=== PATIENT | female | born 1965 | race Caucasian/White ===

== ENCOUNTER 2025-03-13 06:23 | Emergency (ER) | payer OTHER ==
[~2025-03-13] VITALS: Ht 165.1 cm; Wt 84.6 kg
[2025-03-13 06:46] LABS: URINE HCG NEGATIVE (NEG)
[2025-03-13 06:52] LABS: BILIRUBIN,URINE NEGATIVE (Neg); CLARITY,URINE SLIGHTLY CLOUDY (Clear); COLOR,URINE YELLOW (Yellow); GLUCOSE, URINE NEGATIVE (Neg); KETONES,URINE NEGATIVE (Neg); LEUKOCYTE ESTERASE ,URINE NEGATIVE (Neg); NITRITES, URINE NEGATIVE (Neg); OCCULT BLOOD,URINE NEGATIVE (Neg); PROTEIN,URINE NEGATIVE (Neg); UROBILINOGEN,URINE 0.2 E.U/dL (0.2-1.0)
[2025-03-13 06:57] LABS: SQUAMOUS EPITHELIAL CELL,UR MANY /LPF (FEW); UA COLLECTION TYPE CLN CATCH MIDSTREAM
[2025-03-13 06:58] LABS: BACTERIA,URINE 3+ /HPF (Neg); WBC,URINE 0-4 /HPF (0-4)
[2025-03-13 06:59] LABS: RBC,URINE 0-2 /HPF (0-2)
[2025-03-13 07:35] LABS: BASOPHILS % (AUTO) 0.7 % (0-1); EOSINOPHILS # (AUTO) 0.1 X10'3 (0-0.9); EOSINOPHILS % (AUTO) 1.5 % (0-6); HEMATOCRIT 40.4 % (35.0-45.0); HEMOGLOBIN 13.6 g/dl (12.0-16.0); LYMPHOCYTES # (AUTO) 1.2 X10'3 (1.1-4.8); LYMPHOCYTES % (AUTO) 21.8 % (21-51); MEAN CORPUSCULAR HGB CONC 33.7 g/dL (33.0-36.5); MEAN CORPUSCULAR VOLUME 97.8 FL (78-98); MEAN PLATELET VOLUME 7.5 FL (7.4-10.4); MONOCYTES # (AUTO) 0.4 X10'3 (0-0.9); MONOCYTES % (AUTO) 6.4 % (2-12); NEUTROPHILS % (AUTO) 69.6 % (42-75); PLATELET COUNT 230 X10'3 (140-440); RED BLOOD COUNT 4.13 X10'6 (4.20-5.60); RED CELL DISTRIBUTION WIDTH 13.1 % (11.5-14.5); WHITE BLOOD COUNT 5.7 X10'3 (4.5-11.0)
[2025-03-13 07:55] LABS: ALANINE AMINOTRANSFERASE 30 U/L (12-78); ALBUMIN 3.8 G/DL (3.4-5.0); ALBUMIN/GLOBULIN RATIO 1.2 (1.1-1.5); ALKALINE PHOSPHATASE 68 IU/L (46-116); ANION GAP 8 (8-16); ASPARTATE AMINO TRANSFERASE 23 U/L (10-37); BILIRUBIN,TOTAL 0.9 MG/DL (0.1-1.0); BLOOD UREA NITROGEN 10 MG/DL (7-18); BUN/CREATININE RATIO 9.2 (10.0-20.0); CALCIUM 8.8 MG/DL (8.5-10.1); CHLORIDE 107 MMOL/L (99-107); CREATININE 1.09 MG/DL (0.40-0.90); GLUCOSE 126 MG/DL (70-104); LIPASE 50 U/L (16-77); POTASSIUM 4.2 MMOL/L (3.5-5.1); SODIUM 141 MMOL/L (135-145); TOTAL PROTEIN 7.1 G/DL (6.4-8.2); eCRCL 49 ML/MIN; eGFR 51 ML/MIN
[2025-03-13] MEDS ORDERED: AMOX-101 PO (08:46)
--- NOTE | 2025-03-13 08:47 | Physician Documentation ---
History of Present Illness Chief Complaint: Abdominal Pain Stated Complaint: ABDOMINAL PAIN Time Seen by MD: 06:37 Mode of Arrival: Ambulatory, Dropped Off HPI 59 year old female with LLQ abdominal pain this morning. She is about to go on a trip to [place] with her significant other. She denies fever, reports some mild diarrhea without blood, and denies vomiting, chest pain, shortness of breath. She thinks it may be a urinary tract infection or a flareup of diverticulitis which she has been diagnosed with in the past. Medication Reconciliation Allergies: Coded Allergies: No Known Allergies (Unverified , 03/13/25) Review of Systems All Other Systems at this time: Reviewed and Negative Physical Exam Vital Signs: RN Vital Signs have been reviewed: Yes, Temperature: 98.1, Source: Oral, Heart Rate: 71, Respiratory Rate: 15, BP: 126/70, Pulse Oximetry: 98, Weight: 84.600 Oxygen Flow Rate: 0 Physical Exam HEENT: PERRL, moist oral mucosa, EOMI Pulmonary: No respiratory distress Cardiac: RRR, no murmur, rub or gallop GI: nondistended, soft, mildly tender LLQ, no guarding, no rebound MSK: no deformity Skin: w/d/i, no rash Neuro: alert, nonfocal Psych: normal affect Progress Results/Orders Results/Orders Completed Orders - LAYTON RUSSELL MD Hcg, Ur Ql (03/13/25 06:32) Cbc/Diff (03/13/25 06:32) BMP (03/13/25 06:32) Lipase (03/13/25 06:32) CMP (03/13/25 06:32) Ua W/Microscopic, Cult If Ind (03/13/25 06:32) Vital Signs 03/13/25 03/13/25 03/13/25 06:28 06:58 08:20 Temp 98.1 98.1 Pulse 72 71 Resp 16 15 B/P (MAP) 124/79 126/70 (88) Pulse Ox 99 98 O2 Flow Rate 0 0 Laboratory Tests Test 03/13/25 06:32 03/13/25 07:19 Urine Specimen Description Cln catch midstream Urine Color Yellow Urine Clarity Slightly cloudy Urine pH 6.0 Urine Specific Ralph 1.015 Urine Protein Negative Urine Glucose (UA) Negative Urine Ketones Negative Urine Occult Blood Negative Urine Nitrite Negative Urine Bilirubin Negative Urine Urobilinogen 0.2 Urine Leukocyte Esterase Negative Urine RBC 0-2 Urine WBC 0-4 Urine Squamous Epithelial Cells Many Urine Bacteria 3+ Urine Culture Indicated Not ind Volume Urine Centrifuged 10 ml Urine HCG, Qualitative Negative Urine Comment White Blood Count 5.7 Red Blood Count 4.13 L Hemoglobin 13.6 Hematocrit 40.4 Mean Corpuscular Volume 97.8 Mean Corpuscular Hemoglobin 33.0 H Mean Corpuscular Hemoglobin Concent 33.7 Red Cell Distribution Width 13.1 Platelet Count 230 Mean Platelet Volume 7.5 Neutrophils (%) (Auto) 69.6 Lymphocytes (%) (Auto) 21.8 Monocytes (%) (Auto) 6.4 Eosinophils (%) (Auto) 1.5 Basophils (%) (Auto) 0.7 Neutrophils # (Auto) 4.0 Lymphocytes # (Auto) 1.2 Monocytes # (Auto) 0.4 Eosinophils # (Auto) 0.1 Basophils # (Auto) 0.0 CBC Comment Sodium Level 141 Potassium Level 4.2 Chloride Level 107 Carbon Dioxide Level 26.0 Anion Gap 8 Blood Urea Nitrogen 10 Creatinine 1.09 H Estimated GFR/1.73 m2 51 BUN/Creatinine Ratio 9.2 L Glucose Level 126 H Calcium Level 8.8 Total Bilirubin 0.9 Aspartate Amino Transf (AST/SGOT) 23 Alanine Aminotransferase (ALT/SGPT) 30 Alkaline Phosphatase 68 Total Protein 7.1 Albumin 3.8 Globulin 3.3 Albumin/Globulin Ratio 1.2 Lipase 50 Chemistry Comments Medical Decision Making Findings 59 year old female with LLQ pain. Exam and vitals nonspecific. Labs did not suggest specific etiology. Given her history of diverticulitis I will treat empirically, though patient refuses flagyl 2/2 poor reaction to this antibiotic in the past and requests amoxicillin. Return precautions discussed. Differential Dx:Considerations: Include: Appendicitis, Bowel obstruction, Cholangitis, Cholelithasis, Constipation, Diverticular disease, Pancreatitis, Urinary obstruction, Urinary tract infection Departure Disposition: HOME / SELF CARE / HOMELESS Impression: Primary Impression: Abdominal pain Condition: Stable Discharge Instructions: Abdominal Pain (Nonspecific) Referrals: NO PRIMARY CARE PROVIDER (PCP) Prescriptions Amoxicillin Trihydrate (Amoxicillin) 500 Mg Capsule 1 CAP PO BID for 7 Days, #14 CAP Prov: LAYTON RUSSELL MD 03/13/25 Education Educated: Patient, Family Educated regarding: diagnosis, treatment, prognosis, need for follow up Signature Scribe Signature: . Attestation: . LAYTON RUSSELL MD Mar 13, 2025 08:47
[2025-03-13] MEDS: amoxicillin 250mg capsule PO ONE (09:03)
[2025-03-13 09:10] VITALS: BP 139/71; PULSE 76; RESP 18; TEMP 98.1; O2SAT 100
== END 2025-03-13 09:08 | disposition home or self-care (01) ==
LOC: ER 06:24
DX: R10.32 Left lower quadrant pain (principal)
CPT/HCPCS: 36415; 80053; 81001; 81025; 83690; 85025; 99284